=== PATIENT | male | born 1990 | race Asian ===

== ENCOUNTER 2016-10-15 20:45 | Emergency (ER) | payer BC ==
[2016-10-15 21:01] VITALS: BP 127/92
[2016-10-15] MEDS ORDERED: DOXYcycline CAP(*) 100 MG PO ONE ×2 (21:01→21:02)
--- NOTE | 2016-10-15 21:09 | UC ---
Sloan Starks Anna, scribed for Drew Almeida MD on 10/15/16 at 2102 . Skin Complaint HPI - HPI Summary HPI Summary: Patient is a 26 y/o male coming [place] [facility] [place] presenting with a constant erythematous area that he noticed at midnight last night. He went fishing two days ago, in the afternoon. His leg is painful. He is not sure if it was a tick bite. He did not see a tick. Denies fever or other pain. Patient medications were reviewed this visit. - History of Current Complaint Time Seen by Provider: 10/15/16 20:56 Stated Complaint: TICK BITE Hx Obtained From: Patient Onset/Duration: Still Present Onset Severity: Moderate Current Severity: Moderate - Allergy/Home Medications Allergies/Adverse Reactions: Allergies Allergy/AdvReac Type Severity Reaction Status Date / Time No Known Allergies Allergy Verified 10/15/16 21:01 Review of Systems Constitutional: Negative Skin: Other - erythematous area of the skin, accompanied by pain Eyes: Negative ENT: Negative Respiratory: Negative Cardiovascular: Negative Gastrointestinal: Negative Genitourinary: Negative Motor: Negative Neurovascular: Negative Musculoskeletal: Negative Neurological: Negative Psychological: Negative All Other Systems Reviewed And Are Negative: Yes PMH/Surg Hx/FS Hx/Imm Hx - Additional Past Medical History Additional PMH: Hx Funjima, sepsis, pneumonia, as a result of mold - Surgical History Surgical History: Yes Surgery Procedure, Year, and Place: chest tube 2013 - Family History Known Family History: Positive: Hypertension, Renal Disease, Other - HLD, polymyalgia rheumatica - Social History Alcohol Use: None Substance Use Type: None Smoking Status (MU): Never Smoked Tobacco Physical Exam Triage Information Reviewed: Yes Appearance: Well-Appearing, No Pain Distress Vital Signs: Temp Pulse Resp BP Pulse Ox 98.8 F 70 16 127/92 97 10/15/16 20:55 10/15/16 20:55 10/15/16 20:55 10/15/16 20:55 10/15/16 20:55 Elevated BP noted. Vital Signs Reviewed: Yes Eye Exam: Normal - EOMI, ALICE ENT Exam: Normal Neck: Positive: Supple, Nontender Respiratory: Positive: Lungs clear, Normal breath sounds, No respiratory distress Cardiovascular: Positive: RRR Musculoskeletal Exam: Normal Musculoskeletal: Positive: Strength Intact, ROM Intact Neurological Exam: Normal Psychological Exam: Normal Psychological: Positive: Age Appropriate Behavior Skin Exam: Other - 2 cm diameter raised erythematous area with a 3 mm ulceration in the middle. No insect present. No streaking. Course/Dx - Course Course Of Treatment: WILL RX DOXY 100MG PO BID X 14 DAYS TO COVER FOR BOTH CELLULITIS OR LYME. - Diagnoses Provider Diagnoses: Elevated blood presssure without diagnosis of hypertension. CELLULITIS LEFT LOWER LEG, POSSIBLY FROM A TICK BITE. Discharge - Discharge Plan Condition: Stable Disposition: HOME Prescriptions: DOXYcycline CAP(*) [DOXYcycline 100MG CAP(*)] 100 mg PO BID #26 cap Patient Education Materials: Cellulitis (ED) Referrals: Blaire Barajas MD [Primary Care Provider] - Additional Instructions: FOLLOW UP WITH YOUR DOCTOR FOR THE INFECTION ON YOUR LEG. YOU ARE BEING TREATED WITH THE ANTIBIOTIC DOXYCYCLINE WHICH WILL TREAT BOTH LYME AND CELLULITIS. RETURN TO THE EMERGENCY DEPARTMENT FOR ANY WORSENING OF YOUR CONDITION; YOU FEEL ILL, THE INFECTION SPREADS OR QUESTIONS OR CONCERNS. The documentation as recorded by the Sloan hernandez Anna accurately reflects the service I personally performed and the decisions made by me, Drew Almeida MD.
== END 2016-10-15 21:19 | disposition home or self-care (01) ==
LOC: UCEAST 20:45
DX: L03.116 Cellulitis of left lower limb (principal); R03.0 Elevated blood-pressure reading, without diagnosis of hypertension
CPT/HCPCS: 99212; A9270-GY; G0463

== ENCOUNTER 2019-07-01 17:17 | Emergency (ER) | payer BC, OTHER ==
[2019-07-01] MEDS ORDERED: Ketorolac INJ* 30 MG/ML 1 ML VIAL IM ONE (19:43)
[2019-07-01 19:58] LABS: ABS Eosinophils 0.2 10^3/ul (0-0.6); ABS Lymphocytes 2.4 10^3/ul (1.0-4.8); ABS Monocytes 0.7 10^3/ul (0-0.8); ABS Neutrophils 4.4 10^3/ul (1.5-7.7); Eosinophil % 2.1 %; Hematocrit 47 % (42-52); Hemoglobin 16.1 g/dL (14.0-18.0); Lymphocyte % 30.6 %; Mean Corpuscular HGB Conc 34 g/dL (31-36); Mean Corpuscular Hemoglobin 30 pg (27-31); Mean Corpuscular Volume 88 fL (80-94); Mean Platelet Volume 8.8 fL (7.4-10.4); Nucleated Red Blood Cells % 0.1; Platelet Count 147 10^3/uL (150-450); Red Blood Count 5.35 10^6 /uL (4.18-5.48); Red Cell Distribution Width 13 % (10-15); White Blood Count 7.7 10^3/uL (3.5-10.8)
[2019-07-01 20:15] LABS: Albumin 4.4 g/dL (3.2-5.2); Albumin/Globulin Ratio 1.4 (1-3); BUN/Creatinine Ratio 19.8 (8-20); C Reactive Protein 12.72 mg/L (<8.01); Calcium 9.3 mg/dL (8.6-10.3); EGFR Non-African American 99.2 (>60); Globulin 3.1 g/dL (2-4); Potassium 3.8 mmol/L (3.5-5.0); Total Bilirubin 0.6 mg/dL (0.2-1.0); Total Protein 7.5 g/dL (6.4-8.9)
[2019-07-01 20:24] LABS: Urine Appearance Clear; Urine Bilirubin Negative (Negative); Urine Blood Negative (Negative); Urine Color Yellow; Urine Glucose Negative (Negative); Urine Ketones Negative (Negative); Urine Nitrite Negative (Negative); Urine Protein Negative (Negative); Urine Specific Gravity 1.024 (1.010-1.030); Urine Urobilinogen Negative (Negative)
--- NOTE | 2019-07-01 20:29 | ED ---
GI/ HPI - HPI Summary HPI Summary: 28 year old male presents with right flank pain for the past two days. He denies any hematuria. No nausea vomiting diarrhea. he denies any constipation. He states the pain does radiate to abd. He denies any previous injury to the area. he states he has had his lung drained before due to pneumonia. Has a history of kidney stones. no loss of bowel or bladder or saddle anesthesia. No pain to his legs. No numbness or tingling. Has been taking acetaminophen with minimal relief. - History of Current Complaint Chief Complaint: EDFlankPain Time Seen by Provider: 07/01/19 19:36 Stated Complaint: FLANK PAIN PER PT Pain Intensity: 7 - Allergy/Home Medications Allergies/Adverse Reactions: Allergies Allergy/AdvReac Type Severity Reaction Status Date / Time No Known Allergies Allergy Verified 10/15/16 21:01 PMH/Surg Hx/FS Hx/Imm Hx Endocrine/Hematology History: Denies: Hx Diabetes Respiratory History: Reports: Hx Pneumonia, Other Respiratory Problems/ Disorders - RECENT EMPYEMA AND CHEST TUBE - Surgical History Surgery Procedure, Year, and Place: chest tube 2013 Infectious Disease History: No Infectious Disease History: Denies: Traveled Outside the [place] in Last 30 Days - Family History Known Family History: Positive: Hypertension, Renal Disease, Other - HLD, polymyalgia rheumatica - Social History Alcohol Use: Occasionally Substance Use Type: Reports: None Smoking Status (MU): Never Smoked Tobacco Review of Systems Negative: Fever Negative: Chest Pain Negative: Shortness Of Breath Positive: Other - flank pain. Negative: Vomiting, Diarrhea, Nausea Negative: dysuria All Other Systems Reviewed And Are Negative: Yes Physical Exam Triage Information Reviewed: Yes Vital Signs On Initial Exam: Initial Vitals Temp Pulse Resp BP Pulse Ox 99.4 F 77 16 140/95 98 07/01/19 17:37 07/01/19 17:37 07/01/19 17:37 07/01/19 17:37 07/01/19 17:37 Vital Signs Reviewed: Yes Appearance: Positive: Well-Appearing Skin: Positive: Warm, Dry Head/Face: Positive: Normal Head/Face Inspection Eyes: Positive: Normal, Conjunctiva Clear ENT: Positive: Pharynx normal Respiratory/Lung Sounds: Positive: Clear to Auscultation, Breath Sounds Present Cardiovascular: Positive: Normal, RRR Abdomen Description: Positive: Nontender, Soft, CVA Tenderness (R) Bowel Sounds: Positive: Present Musculoskeletal: Positive: Normal Neurological: Positive: Normal Psychiatric: Positive: Normal Procedures - Sedation Patient Received Moderate/Deep Sedation with Procedure: No Diagnostics - Vital Signs Vital Signs Temp Pulse Resp BP Pulse Ox 07/01/19 20:00 63 97 07/01/19 19:40 75 98 07/01/19 19:39 75 131/92 97 07/01/19 17:37 99.4 F 77 16 140/95 98 - Laboratory Lab Results: Lab Results 07/01/19 07/01/19 07/01/19 Range/Units 19:49 19:49 20:15 WBC 7.7 (3.5-10.8) 10^3/uL RBC 5.35 (4.18-5.48) 10^6 /uL Hgb 16.1 (14.0-18.0) g/dL Hct 47 (42-52) % MCV 88 (80-94) fL MCH 30 (27-31) pg MCHC 34 (31-36) g/dL RDW 13 (10-15) % Plt Count 147 L (150-450) 10^3/uL MPV 8.8 (7.4-10.4) fL Neut % (Auto) 57.6 % Lymph % (Auto) 30.6 % [place] % (Auto) 9.4 % Eos % (Auto) 2.1 % Baso % (Auto) 0.3 % Absolute Neuts (auto) 4.4 (1.5-7.7) 10^3/ul Absolute Lymphs (auto) 2.4 (1.0-4.8) 10^3/ul Absolute Monos (auto) 0.7 (0-0.8) 10^3/ul Absolute Eos (auto) 0.2 (0-0.6) 10^3/ul Absolute Basos (auto) 0.0 (0-0.2) 10^3/ul Absolute Nucleated RBC 0.0 10^3/ul Nucleated RBC % 0.1 Sodium 137 (135-145) mmol/L Potassium 3.8 (3.5-5.0) mmol/L Chloride 105 (101-111) mmol/L Carbon Dioxide 26 (22-32) mmol/L Anion Gap 6 (2-11) mmol/L BUN 18 (6-24) mg/dL Creatinine 0.91 (0.67-1.17) mg/dL Est GFR ( Amer) 120.0 (>60) Est GFR (Non-Af Amer) 99.2 (>60) BUN/Creatinine Ratio 19.8 (8-20) Glucose 95 (70-100) mg/dL Calcium 9.3 (8.6-10.3) mg/dL Total Bilirubin 0.60 (0.2-1.0) mg/dL AST 17 (13-39) U/L ALT 23 (7-52) U/L Alkaline Phosphatase 85 (34-104) U/L C-Reactive Protein 12.72 H (<8.01) mg/L Total Protein 7.5 (6.4-8.9) g/dL Albumin 4.4 (3.2-5.2) g/dL Globulin 3.1 (2-4) g/dL Albumin/Globulin Ratio 1.4 (1-3) Urine Color Yellow Urine Appearance Clear Urine pH 5.0 (5-9) Ur Specific [place] 1.024 (1.010-1.030) Urine Protein Negative (Negative) Urine Ketones Negative (Negative) Urine Blood Negative (Negative) Urine Nitrate Negative (Negative) Urine Bilirubin Negative (Negative) Urine Urobilinogen Negative (Negative) Ur Leukocyte Esterase Negative (Negative) Urine Glucose Negative (Negative) Result Diagrams: 07/01/19 19:49 07/01/19 19:49 Lab Statement: Any lab studies that have been ordered have been reviewed, and results considered in the medical decision making process. - CT abd CT Interpretation Completed By: Radiologist Summary of CT Findings: IMPRESSION: No evidence of renal calculi or hydronephrosis. Constipation. Re-Evaluation - Re-Evaluation First Eval Re-Evaluation Time: 20:39 Change: Improved Comment: feeling better after toradol GIGU Course/Dx - Course Course Of Treatment: 28 year old male presents with right flank pain for the past two days. He denies any hematuria. No nausea vomiting diarrhea. he denies any constipation. He states the pain does radiate to abd. He denies any previous injury to the area. he states he has had his lung drained before due to pneumonia. Has a history of kidney stones. no loss of bowel or bladder or saddle anesthesia. No pain to his legs. No numbness or tingling. Has been taking acetaminophen with minimal relief. On exam tenderness right flank pain and abdomen soft nontender. wbc normal. Urine shows no infection. CT shows no stone. Discussed likely muscular. Will place on a course of Flexeril. Told follow up with primary. Patient understands and agrees with the plan. - Diagnoses Differential Diagnoses - Male: Pyelonephritis, Ureteral Calculi, Urinary Tract Infection Provider Diagnoses: Flank pain Discharge ED - Sign-Out/Discharge Documenting (check all that apply): Patient Departure - Discharge Plan Condition: Good Disposition: HOME Prescriptions: Cyclobenzaprine TAB* [Flexeril 10 MG TAB*] 10 mg PO TID PRN #15 tab PRN Reason: Pain - Moderate Patient Education Materials: Flank Pain (ED) Referrals: Blaire Barajas MD [Primary Care Provider] - Additional Instructions: Take muscle relaxers three times a day Use ibuprofen or Tylenol for pain every 6 hours ice/heat area, move as much as possible Follow up with primary within 5 days Return to ED if develop any new or worsening symptoms - Billing Disposition and Condition Condition: GOOD Disposition: Home
[2019-07-01] MEDS ORDERED: Cyclobenzaprine TAB* 10 MG PO ONE (20:33)
[2019-07-01 20:44] VITALS: BP 113/83
== END 2019-07-01 20:42 | disposition home or self-care (01) ==
LOC: ED 17:17
DX: R10.9 Unspecified abdominal pain (principal); K59.00 Constipation, unspecified; Z87.442 Personal history of urinary calculi
CPT/HCPCS: 36415; 74176; 80053; 81003; 85025; 86140; 96372; 99283; A9270-GY; J1885

== ENCOUNTER 2019-08-11 19:11 | Emergency (ER) | payer OTHER ==
[2019-08-11 19:51] VITALS: BP 165/101
[2019-08-11 20:17] LABS: ABS Eosinophils 0.1 10^3/ul (0-0.6); ABS Lymphocytes 2.5 10^3/ul (1.0-4.8); ABS Monocytes 0.6 10^3/ul (0-0.8); Hematocrit 50 % (42-52); Hemoglobin 17.4 g/dL (14.0-18.0); Lymphocyte % 34.5 %; Mean Corpuscular HGB Conc 35 g/dL (31-36); Mean Corpuscular Hemoglobin 30 pg (27-31); Mean Corpuscular Volume 87 fL (80-94); Mean Platelet Volume 9.1 fL (7.4-10.4); Platelet Count 191 10^3/uL (150-450); Red Blood Count 5.74 10^6 /uL (4.18-5.48); Red Cell Distribution Width 14 % (10-15); White Blood Count 7.3 10^3/uL (3.5-10.8)
--- NOTE | 2019-08-11 20:27 | ED ---
HPI Chest Pain - HPI Summary HPI Summary: Patient is a 28 year-old male presenting to [facility] with a chief complaint of bilateral chest pain and difficulty breathing since yesterday. He also developed a sore throat with painful swallowing this morning. The throat discomfort is described as a funny sensation. He denies any fevers or cough. Patient was tested for COVID-19 at the [facility] today, results still pending. His symptoms have worsened since being tested this morning, currently rated 7/10 in severity. There are no aggravating or alleviating factors. He has not taken any medications for treatment of the pain but has taken Vitamin D3. No recent travel or known exposure to positive cases. Past medical history includes pneumothorax with chest tube 2014, empyema, sepsis, pneumonia. Family history of polymyalgia rheumatic. Nonsmoker, occasional EtOH, no substance use. Medications reviewed. Allergies noted. - History of Current Complaint Time Seen by Provider: 08/11/19 19:31 Hx Obtained From: Patient Onset/Duration: Started Hours Ago, Still Present Timing: Constant Initial Severity: Mild Current Severity: Moderate Pain Intensity: 7 Pain Scale Used: 0-10 Numeric Chest Pain Location: Diffuse - bilateral Chest Pain Radiates: No Character: Dyspnea at Rest Aggravating Factor(s): Nothing Alleviating Factor(s): Nothing Associated Signs and Symptoms: Positive: Chest Pain, Shortness of Breath, Other : - sore throat. Negative: Fever, Cough - Allergy/Home Medications Allergies/Adverse Reactions: Allergies Allergy/AdvReac Type Severity Reaction Status Date / Time No Known Allergies Allergy Verified 10/15/16 21:01 Home Medications: Home Medications NK [No Home Medications Reported] 08/11/19 [History Confirmed 08/11/19] PMH/Surg Hx/FS Hx/Imm Hx Endocrine/Hematology History: Denies: Hx Diabetes Cardiovascular History: Denies: Hx Hypertension Respiratory History: Reports: Hx Pneumonia, Other Respiratory Problems/ Disorders - RECENT EMPYEMA AND CHEST TUBE/pneumothorax - Surgical History Surgical History: Yes Surgery Procedure, Year, and Place: chest tube 2013 Infectious Disease History: No Infectious Disease History: Denies: Traveled Outside the [place] in Last 30 Days - Family History Known Family History: Positive: Hypertension, Renal Disease, Other - HLD, polymyalgia rheumatica - Social History Alcohol Use: Occasionally Hx Substance Use: No Substance Use Type: Reports: None Hx Tobacco Use: No Smoking Status (MU): Never Smoked Tobacco - Additional Comments History Additional Comments: pneumothorax with chest tube 2014, empyema, sepsis, pneumonia Review of Systems - ROS Summary Review of Systems Summary: Home Medications Medication Instructions Recorded Confirmed Type NK [No Home Medications Reported] 08/11/19 08/11/19 History Negative: Fever Positive: Sore Throat Positive: Chest Pain Positive: Shortness Of Breath. Negative: Cough All Other Systems Reviewed And Are Negative: Yes Physical Exam - Summary Physical Exam Summary: General: Well-developed, Well-nourished male. Not ill-appearing. No acute distress. Mildly anxious appearing. HEENT: Normocephalic, Atraumatic. Eyes: Conjuctiva normal, PERRL. Oropharynx: Erythematous but clear, mucous membranes moist, (-) exudates. Neck: Soft, FROM, (-) lymphadenopathy, (-) thyromegaly, (-) JVD. Cardiovascular: Normal sinus rhythm, (-) murmur. Lungs: Clear to auscultation bilaterally (-) wheezes, (-) rales, (-) rhonchi. Abdomen: Soft, non-tender, non-distended, (-) organomegaly, normal bowel sounds. Back: (-) CVA tenderness Extremities: No edema. Skin: Warm, dry, (-) rash. Neuro: Alert and oriented x3, moves all extremities equally. No ataxia. No gait disturbance. No sensory deficit. Normal strength, normal sensation. Psychiatric: Mood normal, affect normal. Triage Information Reviewed: Yes Vital Signs On Initial Exam: Initial Vitals Pulse BP Pulse Ox 70 165/101 98 08/11/19 19:46 08/11/19 19:46 08/11/19 19:46 Vital Signs Reviewed: Yes Procedures - Sedation Patient Received Moderate/Deep Sedation with Procedure: No Diagnostics - Vital Signs Vital Signs Temp Pulse Resp BP Pulse Ox 08/11/19 20:00 73 98 08/11/19 19:48 65 98 08/11/19 19:47 98.0 F 66 18 165/101 98 08/11/19 19:46 70 165/101 98 - Laboratory Result Diagrams: 08/11/19 20:00 08/11/19 20:00 Lab Statement: Any lab studies that have been ordered have been reviewed, and results considered in the medical decision making process. - Radiology CXR Radiology Interpretation Completed By: ED Physician Summary of Radiographic Findings: No pleural effusion. No infiltrate. This imaging scan was reviewed and interpreted by Dr. Farrar, pending official read. Re-Evaluation - Re-Evaluation First Eval Re-Evaluation Time: 21:45 Comment: I discussed all results. Discussed all symptoms that warrant return to the ED. Chest Pain Course/Dx - Course Course Of Treatment: 20-year-old male presents from home by private vehicle with complaints of inferior chest pain bilaterally. He states it is his lungs. When he takes a deep breath his inferior lungs hurt bilaterally. Patient states a few years ago he had to have surgery on his right long for complications from pneumonia. Also describes sore throat. He denies any fevers or chills. No cough. No nausea vomiting diarrhea. Patient did go to the drive-through test center today and was swabbed for covid-19. He has no known exposure. Has not traveled. He does not meet criteria for suspicion for Coronavirus. On physical exam he is not ill-appearing. Has mild erythema posterior pharynx. Laboratories show no significant abnormalities. Chest x- ray within normal limits. Patient discharged home with viral syndrome. Advised plenty fluids and rest. Tylenol and ibuprofen. Follow up PCP. Follow- up sooner for any worsening symptoms. - Diagnoses Provider Diagnoses: Viral syndrome Discharge ED - Sign-Out/Discharge Documenting (check all that apply): Patient Departure - Patient will be discharged home. - Discharge Plan Condition: Stable Disposition: HOME Patient Education Materials: Viral Syndrome (ED) Referrals: Blaire Barajas MD [Primary Care Provider] - 3 Days Additional Instructions: Follow up with your primary care provider in 2-3 days. Return to the emergency department for any new or worsening symptoms. - Billing Disposition and Condition Condition: STABLE Disposition: Home - Attestation Statements Document Initiated by Scribe: Yes Documenting Scribe: Connie Morales Provider For Whom Hilray is Documenting (Include Credential): Maritza Farrar MD Scribe Attestation: Connie Starks, scribed for Maritza Farrar MD on 08/11/19 at 2221. Scribe Documentation Reviewed: Yes Provider Attestation: The documentation as recorded by the Connie hernandez accurately reflects the service I personally performed and the decisions made by me, Maritza Farrar MD Status of Scribe Document: Viewed
[2019-08-11 20:28] LABS: INR 1.16 (0.82-1.09)
[2019-08-11 20:32] LABS: Rapid Strep Molecular Negative (Negative)
[2019-08-11 20:36] LABS: Albumin 4.5 g/dL (3.2-5.2); Albumin/Globulin Ratio 1.4 (1-3); BUN/Creatinine Ratio 8.9 (8-20); Calcium 10.1 mg/dL (8.6-10.3); EGFR African American 141.3 (>60); EGFR Non-African American 116.8 (>60); Globulin 3.3 g/dL (2-4); Potassium 3.4 mmol/L (3.5-5.0); Total Bilirubin 0.8 mg/dL (0.2-1.0); Total Protein 7.8 g/dL (6.4-8.9)
[2019-08-11 20:39] LABS: Troponin I 0.01 ng/mL (<0.03)
== END 2019-08-11 22:13 | disposition home or self-care (01) ==
LOC: ED 19:11
DX: B34.9 Viral infection, unspecified (principal); R07.9 Chest pain, unspecified; R06.02 Shortness of breath; J02.9 Acute pharyngitis, unspecified; Z20.828 Contact with and (suspected) exposure to other viral communicable diseases
CPT/HCPCS: 36415; 71045; 80053; 84484; 85025; 85610; 87651; 99283